=== PATIENT | female | born 1985 | race Native Hawaiian/Other Pacific Islander ===

== ENCOUNTER 2025-03-13 12:39 | Outpatient (CLI) | payer OTHER, SELFPAY ==
--- NOTE | 2025-03-13 14:00 | CRLHL7_ITS ---
For Patients: As a result of the Century Cures Act, medical imaging exams and procedure reports are released immediately into your electronic medical record. You may view this report before your referring provider. If you have questions, please contact your health care provider. INDICATION: BILATERAL SCREENING MAMMOGRAM, ASYMPTOMATIC 40 Y/O FEMALE COMPARISON: Baseline TECHNIQUE: Digital mammogram in CC and MLO projections including computer-aided detection (CAD) and tomosynthesis. BREAST COMPOSITION: There are scattered areas of fibroglandular density. FINDINGS: No suspicious findings. ASSESSMENT: BI-RADS 1 Negative RECOMMENDATION: Annual screening mammogram. A lay language report of this examination will be provided to the patient. Dictated by: Josiah Washburn MD @ 03/14/2025 12:42:47 (Electronically Signed)
== END 2025-03-13 12:40 | disposition home or self-care (01) ==
LOC: MAMMO 12:39
PROVIDERS: PCP Family Medicine; Visit Provider Physician Assistant
DX: Z12.31 Encounter for screening mammogram for malignant neoplasm of breast (principal); Z11.51 Encounter for screening for human papillomavirus (HPV)
CPT/HCPCS: 77063; 77067; T1013

== ENCOUNTER 2025-03-13 13:15 | Outpatient (CLI) | payer OTHER, SELFPAY ==
[2025-03-15 02:04] LABS: HPV Source Cervix
[2025-03-19 09:03] LABS: Pap Test Digital Imaging Done
== END 2025-03-13 13:16 | disposition home or self-care (01) ==
PROVIDERS: PCP Family Medicine; Visit Provider Physician Assistant
DX: Z12.4 Encounter for screening for malignant neoplasm of cervix (principal); Z11.51 Encounter for screening for human papillomavirus (HPV)
CPT/HCPCS: 77063; 77067; 87624; 87625; 88141; 88142; 88175; T1013

== ENCOUNTER 2025-04-04 13:44 | Outpatient (CLI) | payer OTHER, SELFPAY ==
[2025-04-04 16:11] LABS: Bacterial Vaginosis* Negative (Negative); Candida glab/krus NOT DETECTED (No Detected)
== END 2025-04-04 13:45 | disposition home or self-care (01) ==
LOC: NFLDREF 13:45
PROVIDERS: PCP Family Medicine; Visit Provider Registered Nurse
DX: N89.8 Other specified noninflammatory disorders of vagina (principal)
CPT/HCPCS: 81513; 87481; 87661